=== PATIENT | male | born 1945 | race Caucasian/White ===

== ENCOUNTER 2017-11-11 09:28 | Outpatient (CLI) | payer MEDICARE ==
[~2017-11-11 09:28] MED LIST: AMLO2.5T2 PO; ATI1T PO; FOLI0.4T2 PO; GABA300C PO; GABA400C PO; HYDR-569 PO; LEVO25TA7 PO; LITH300T34 PO; MAGN500C16 PO; NALT50TA10 PO; PRAZ1CAP5 PO; PREG100C PO; PYRI50TA10 PO; THIA100T70 PO; TRAZ-143 PO; VENL-190 PO; VITA100D6 PO
[2017-11-11 09:39] VITALS: BP 113/83
[2017-11-12] MEDS ORDERED: tPA-cathflo 2 MG/2 ml IV flush ONE (18:48)
== END 2017-11-11 10:00 | disposition home or self-care (01) ==
LOC: ORTHO 09:28
PROVIDERS: ATTEND Nurse Practitioner Family
DX: G89.29 Other chronic pain (principal); Z53.21 Procedure and treatment not carried out due to patient leaving prior to being seen by health care provider
CPT/HCPCS: J2997

== ENCOUNTER 2020-08-03 00:56 | Emergency (ER) | payer MEDICARE ==
[~2020-08-03] VITALS: Ht 175.3 cm; Wt 89.5 kg
[~2020-08-03 00:56] MED LIST changes: +HYDR-4383 PO; -HYDR-569 PO; -PYRI50TA10 PO; +PYRI50TA13 PO; -TRAZ-143 PO; +TRAZ-251 PO
[2020-08-03 01:40] LABS: CLARITY,URINE CLEAR (Clear); COLOR,URINE YELLOW (Yellow); GLUCOSE, URINE NEGATIVE (Neg); KETONES,URINE NEGATIVE (Neg); LEUKOCYTE ESTERASE ,URINE NEGATIVE (Neg); NITRITES, URINE NEGATIVE (Neg); OCCULT BLOOD,URINE NEGATIVE (Neg); PROTEIN,URINE NEGATIVE (Neg); UROBILINOGEN,URINE 0.2 E.U/dL (0.2-1.0)
[2020-08-03 01:45] LABS: UA COLLECTION TYPE CLN CATCH MIDSTREAM
[2020-08-03 02:04] LABS: URINE AMPHETAMINE SCREEN NEGATIVE (Neg); URINE BARBITUATE SCREEN NEGATIVE (Neg); URINE BENZODIAZEPINES SCREEN POSITIVE (Neg); URINE CANNABINOID SCREEN NEGATIVE (Neg); URINE COCAINE SCREEN NEGATIVE (Neg); URINE METHADONE SCREEN NEGATIVE (Neg); URINE OPIATE SCREEN NEGATIVE (Neg); URINE PHENCYCLIDINE SCREEN NEGATIVE (Neg)
[2020-08-03 02:09] LABS: ALANINE AMINOTRANSFERASE 29 U/L (12-78); ALBUMIN 3.6 G/DL (3.4-5.0); ALKALINE PHOSPHATASE 78 IU/L (46-116); ANION GAP 6 (8-16); ASPARTATE AMINO TRANSFERASE 12 U/L (10-37); BILIRUBIN,TOTAL 0.2 MG/DL (0.1-1.0); BLOOD UREA NITROGEN 13 MG/DL (7-18); BUN/CREATININE RATIO 10.6 (5.4-32.0); CALCIUM 9.7 MG/DL (8.5-10.1); CHLORIDE 108 MMOL/L (99-107); CREATININE 1.23 MG/DL (0.60-1.10); GLUCOSE 93 MG/DL (70-104); POTASSIUM 3.7 MMOL/L (3.5-5.1); SODIUM 143 MMOL/L (135-145); TOTAL CARBON DIOXIDE 28.8 MMOL/L (24-32); TOTAL PROTEIN 7.2 G/DL (6.4-8.2); eGFR 58 ML/MIN
[2020-08-03 02:18] LABS: ETHANOL 0.138 GM/DL (0.0-0.010)
--- NOTE | 2020-08-03 02:30 | NUR ---
Pt left his room and walked toward admitting and said he wanted to leave. Pt escorted easily back to his room and lay back down on his bed. Pt lying on the bed now with eyes closed.
[2020-08-03 02:40] LABS: BASOPHILS % (AUTO) 0.3 % (0-1); EOSINOPHILS % (AUTO) 0.8 % (0-6); HEMATOCRIT 45.6 % (42.0-52.0); HEMOGLOBIN 15.4 g/dl (14.0-17.9); LYMPHOCYTES # (AUTO) 1.7 X10'3 (1.1-4.8); LYMPHOCYTES % (AUTO) 33.6 % (21-51); MEAN CORPUSCULAR HEMOGLOBIN 32.2 PG (27.0-31.0); MEAN CORPUSCULAR HGB CONC 33.7 g/dL (33.0-36.5); MEAN CORPUSCULAR VOLUME 95.5 FL (78-98); MEAN PLATELET VOLUME 8.3 FL (7.4-10.4); MONOCYTES # (AUTO) 0.3 X10'3 (0-0.9); MONOCYTES % (AUTO) 6.3 % (2-12); NEUTROPHILS # (AUTO) 2.9 X10'3 (1.8-7.7); PLATELET COUNT 175 X10'3 (140-440); RED BLOOD COUNT 4.78 X10'6 (4.70-6.10); RED CELL DISTRIBUTION WIDTH 15.2 % (11.5-14.5); WHITE BLOOD COUNT 4.9 X10'3 (4.5-11.0)
[2020-08-03] MEDS ORDERED: UNABLE TO OBTAIN (02:40)
--- NOTE | 2020-08-03 03:13 | NUR ---
Pt reports [place] and that he does not have his hearing aids. Reports his right ear is better than the left.
--- NOTE | 2020-08-03 04:17 | NUR ---
pt walked out of his room looking for the bathroom. directed to BR. Ambulating with steady gait. returned to his room and lay back onto his bed. Offered a warm blanket, declined. Given pillow.
--- NOTE | 2020-08-03 06:01 | NUR ---
Pt with stable vs. Denies pain.
--- NOTE | 2020-08-03 08:31 | NUR ---
Pt resting in bed. RN did assessment. PT easy to respond. Sleeping. NAD. PT VSS, no tremors noted.
[2020-08-03] MEDS ORDERED: TRAZ-251 PO ×2 (09:41→10:06)
--- NOTE | 2020-08-03 10:30 | NUR ---
RN called pt stated pharmacy [facility] and had them fax a most recent /up to date med list. RN received list and confirmed meds with pt. He states he has no other pharmacy. Pt med rec reviewed and completed per RN and signed per , faxed to pharmacy.
[2020-08-03] MEDS ORDERED: GABA-530 PO (10:34)
[2020-08-03] MEDS ORDERED: VENL25TA48 PO ×3 (10:40→10:45)
[2020-08-03] MEDS ORDERED: ALPR-624 PO (10:47)
[2020-08-03] MEDS ORDERED: HYDR-3686 PO (10:49)
[2020-08-03] MEDS: gabapentin 300mg capsule PO SCH ×2 (11:47→20:49)
[2020-08-03] MEDS: venlafaxine XR 75mg capsule (Q24H) PO SCH (11:48)
[2020-08-03] MEDS: amLODIPine 5mg tablet PO SCH (11:48)
--- NOTE | 2020-08-03 12:02 | NUR ---
Pt given meds. He is alert and responds to questions easily. Still denies any food. Ambulates to bathroom, shuffled gait but steady. No tremors noted
[2020-08-03] MEDS: ALPRAZolam 0.5mg tablet PO SCH ×2 (12:37→20:49)
--- NOTE | 2020-08-03 12:57 | NUR ---
Pt showed RN his med list written on his ipad as he states he takes [place]. However this med was not on the [facility] list. Pt states he has not refilled it from them for a long time because his MD took him off d/t headaches but he "had left over at home and was taking those". Pt med list states [place] 300mg daily.
[2020-08-03] MEDS: hydrOXYzine 25 MG tablet PO SCH ×2 (13:00→20:49)
--- NOTE | 2020-08-03 13:01 | NUR ---
RN gave meds and noticed pt hands with tremor. Pt states this is not new for him, he is "always like this". VS taken per tech with HR 88 BP [id number] and 166/110 taken again. MD Garcia notified. No action at this time. Addendum: 08/03/20 at 1303 by [facility], 165/112 then 166/110
--- NOTE | 2020-08-03 14:38 | NUR ---
Order placed for [place] level per [facility]
--- NOTE | 2020-08-03 14:39 | NUR ---
Lab here to draw lithium level. Pt NAD
--- NOTE | 2020-08-03 16:00 | NUR ---
Pt sleeping. He continues to not want to eat. RN suggested he have some crackers to which he ate a few bites only. He denied breakfast and lunch and sleeps. He is easy to arouse and cooperative.
[2020-08-03] MEDS ORDERED: PARO10TA85 PO (16:07)
[2020-08-03] MEDS ORDERED: ondansetron 4mg rapidly disintigrating tab PO ONE (18:00)
--- NOTE | 2020-08-03 18:01 | NUR ---
Pt given dinner. He states he does not feel like it. He is "nausesous" and has not been able to eat for "weeks". RN received order for Zofran to attempt if pt will try to take. VS remain stable. Pt tremor not increasing from what he states is his baseline
--- NOTE | 2020-08-03 18:17 | NUR ---
RN asked pt about his tremors. He states they have been normal for him with or without drinking. He states he started drinking again about a month ago when his anxiety increased. HE states he was evaluated by a neurologist a couple years ago for tremors and was on "a medication" but stopped because he did not understand what the DR wanted him to do. He states his anxiety makes him nauseous.
[2020-08-03] MEDS ORDERED: PARoxetine 10mg tablet PO SCH (20:00)
[2020-08-03] MEDS: traZODone 50mg tablet PO SCH (20:49)
--- NOTE | 2020-08-04 02:03 | NUR ---
Pt sleeping, lying on his back with blankets covering to his chest. RR 14 and unlabored.
--- NOTE | 2020-08-04 07:00 | NUR ---
PT IS SLEEPING NO CONCERNS
[2020-08-04] MEDS: venlafaxine XR 75mg capsule (Q24H) PO SCH (07:53)
[2020-08-04] MEDS: ALPRAZolam 0.5mg tablet PO SCH ×3 (07:53→21:00)
[2020-08-04] MEDS: gabapentin 300mg capsule PO SCH ×2 (07:53→20:59)
[2020-08-04] MEDS: levoTHYROXINE 25mcg tablet PO SCH (07:54)
[2020-08-04] MEDS: hydrOXYzine 25 MG tablet PO SCH ×3 (07:54→20:59)
[2020-08-04] MEDS: amLODIPine 5mg tablet PO SCH (07:54)
--- NOTE | 2020-08-04 08:00 | NUR ---
PT IS SLEEPING NO CONCERNS
--- NOTE | 2020-08-04 09:00 | NUR ---
PT IS SLEEPING NO CONCERNS
--- NOTE | 2020-08-04 10:00 | NUR ---
PT IS SLEEPING NO CONCERNS
--- NOTE | 2020-08-04 11:00 | NUR ---
PT IS SLEEPING NO CONCERNS
--- NOTE | 2020-08-04 12:00 | NUR ---
PT IS SLEEPING NO CONCERNS
--- NOTE | 2020-08-04 13:00 | NUR ---
PT IS SLEEPING NO CONCERNS
--- NOTE | 2020-08-04 14:00 | NUR ---
PT IS SLEEPING NO CONCERNS
--- NOTE | 2020-08-04 16:00 | NUR ---
PT IS SLEEPING NO CONCERNS
--- NOTE | 2020-08-04 17:00 | NUR ---
PT IS SLEEPING NO CONCERNS
[2020-08-04] MEDS: traZODone 50mg tablet PO SCH (20:59)
--- NOTE | 2020-08-04 21:09 | NUR ---
Pt accepted scheduled medications with no issue. Behavior calm and appropriate. Pt denies further thought of SI an would like to be assessed for discharge before 72 hrs are up.
[2020-08-05 06:27] VITALS: BP_DIAS 73
--- NOTE | 2020-08-05 06:37 | NUR ---
pt is sleeping
[2020-08-05 07:40] VITALS: BP_SYST 134
[2020-08-05] MEDS: venlafaxine XR 75mg capsule (Q24H) PO SCH (07:40)
[2020-08-05] MEDS: hydrOXYzine 25 MG tablet PO SCH (07:40)
[2020-08-05] MEDS: ALPRAZolam 0.5mg tablet PO SCH (07:40)
[2020-08-05] MEDS: levoTHYROXINE 25mcg tablet PO SCH (07:40)
[2020-08-05] MEDS: amLODIPine 5mg tablet PO SCH (07:40)
[2020-08-05] MEDS: gabapentin 300mg capsule PO SCH (07:40)
== END 2020-08-05 12:49 ==
LOC: ER 00:57
DX: R45.851 Suicidal ideations (principal); F10.129 Alcohol abuse with intoxication, unspecified; G62.9 Polyneuropathy, unspecified; F31.9 Bipolar disorder, unspecified; Z98.890 Other specified postprocedural states; Z79.899 Other long term (current) drug therapy; Y90.0 Blood alcohol level of less than 20 mg/100 ml
CPT/HCPCS: 36415; 80053; 80178; 80305; 80320; 81003; 84443; 85025; 99285; Q0177

== ENCOUNTER 2020-08-12 10:17 | Emergency (ER) | payer MEDICARE ==
[~2020-08-12] VITALS: Ht 172.7 cm; Wt 89.5 kg
[~2020-08-12 10:17] MED LIST changes: +ALPR-624 PO; -ATI1T PO; -FOLI0.4T2 PO; +GABA-530 PO; -GABA300C PO; -GABA400C PO; +HYDR-3686 PO; -HYDR-4383 PO; -LITH300T34 PO; -MAGN500C16 PO; -NALT50TA10 PO; +PARO10TA85 PO; -PRAZ1CAP5 PO; -PREG100C PO; -PYRI50TA13 PO; -THIA100T70 PO; -VENL-190 PO; +VENL25TA48 PO; -VITA100D6 PO
[2020-08-12 11:02] LABS: BASOPHILS # (AUTO) 0.1 X10'3 (0-0.2); BASOPHILS % (AUTO) 0.9 % (0-1); EOSINOPHILS % (AUTO) 0.4 % (0-6); HEMATOCRIT 49.6 % (42.0-52.0); HEMOGLOBIN 16.5 g/dl (14.0-17.9); LYMPHOCYTES # (AUTO) 2.3 X10'3 (1.1-4.8); LYMPHOCYTES % (AUTO) 29.3 % (21-51); MEAN CORPUSCULAR HGB CONC 33.2 g/dL (33.0-36.5); MEAN CORPUSCULAR VOLUME 96.5 FL (78-98); MONOCYTES # (AUTO) 0.4 X10'3 (0-0.9); MONOCYTES % (AUTO) 4.5 % (2-12); NEUTROPHILS # (AUTO) 5.2 X10'3 (1.8-7.7); NEUTROPHILS % (AUTO) 64.9 % (42-75); PLATELET COUNT 207 X10'3 (140-440); RED BLOOD COUNT 5.14 X10'6 (4.70-6.10); RED CELL DISTRIBUTION WIDTH 15.8 % (11.5-14.5); WHITE BLOOD COUNT 7.9 X10'3 (4.5-11.0)
[2020-08-12 11:26] LABS: ALANINE AMINOTRANSFERASE 48 U/L (12-78); ALBUMIN 4.1 G/DL (3.4-5.0); ALBUMIN/GLOBULIN RATIO 1.1 (1.1-1.5); ALKALINE PHOSPHATASE 99 IU/L (46-116); ANION GAP 13 (8-16); ASPARTATE AMINO TRANSFERASE 33 U/L (10-37); BILIRUBIN,TOTAL 0.5 MG/DL (0.1-1.0); BLOOD UREA NITROGEN 13 MG/DL (7-18); CALCIUM 9.2 MG/DL (8.5-10.1); CHLORIDE 106 MMOL/L (99-107); CREATININE 1.18 MG/DL (0.60-1.10); ETHANOL 0.147 GM/DL (0.0-0.010); GLUCOSE 81 MG/DL (70-104); LIPASE 102 U/L (73-393); POTASSIUM 3.6 MMOL/L (3.5-5.1); SODIUM 144 MMOL/L (135-145); TOTAL CARBON DIOXIDE 25.2 MMOL/L (24-32); TOTAL PROTEIN 7.9 G/DL (6.4-8.2); eGFR 60 ML/MIN
[2020-08-12 11:38] LABS: CLARITY,URINE CLEAR (Clear); COLOR,URINE YELLOW (Yellow); GLUCOSE, URINE NEGATIVE (Neg); KETONES,URINE NEGATIVE (Neg); LEUKOCYTE ESTERASE ,URINE NEGATIVE (Neg); NITRITES, URINE NEGATIVE (Neg); OCCULT BLOOD,URINE TRACE-INTACT (Neg); PROTEIN,URINE NEGATIVE (Neg)
[2020-08-12 11:39] LABS: UA COLLECTION TYPE STRAIGHT CATH
[2020-08-12 11:47] LABS: MUCUS STRANDS MODERATE /LPF (Neg); SQUAMOUS EPITHELIAL CELL,UR FEW /LPF (FEW)
[2020-08-12 11:48] LABS: BACTERIA,URINE FEW /HPF (Neg); RBC,URINE 0-2 /HPF (0-2); URINE AMPHETAMINE SCREEN NEGATIVE (Neg); URINE BARBITUATE SCREEN NEGATIVE (Neg); URINE BENZODIAZEPINES SCREEN POSITIVE (Neg); URINE CANNABINOID SCREEN NEGATIVE (Neg); URINE COCAINE SCREEN NEGATIVE (Neg); URINE METHADONE SCREEN NEGATIVE (Neg); URINE OPIATE SCREEN NEGATIVE (Neg); URINE PHENCYCLIDINE SCREEN NEGATIVE (Neg); WBC,URINE 0-4 /HPF (0-4)
[2020-08-12 13:09] VITALS: BP 151/112
== END 2020-08-12 13:12 | disposition home or self-care (01) ==
LOC: ER 10:18
DX: F10.129 Alcohol abuse with intoxication, unspecified (principal); G62.9 Polyneuropathy, unspecified; I10 Essential (primary) hypertension; F31.9 Bipolar disorder, unspecified; Z98.890 Other specified postprocedural states; Z79.899 Other long term (current) drug therapy; Y90.0 Blood alcohol level of less than 20 mg/100 ml
CPT/HCPCS: 36415; 80053; 80305; 80320; 81001; 83690; 85025; 99283; 99284

== ENCOUNTER 2020-10-19 00:42 | Emergency (ER) | payer MEDICARE ==
[~2020-10-19] VITALS: Ht 177.8 cm; Wt 86.0 kg
[2020-10-19 03:01] LABS: BASOPHILS % (AUTO) 0.9 % (0-1); EOSINOPHILS # (AUTO) 0.1 X10'3 (0-0.9); EOSINOPHILS % (AUTO) 1.1 % (0-6); HEMATOCRIT 41.9 % (42.0-52.0); HEMOGLOBIN 14.1 g/dl (14.0-17.9); LYMPHOCYTES # (AUTO) 1.8 X10'3 (1.1-4.8); LYMPHOCYTES % (AUTO) 40.3 % (21-51); MEAN CORPUSCULAR HEMOGLOBIN 33.3 PG (27.0-31.0); MEAN CORPUSCULAR HGB CONC 33.7 g/dL (33.0-36.5); MEAN CORPUSCULAR VOLUME 98.8 FL (78-98); MEAN PLATELET VOLUME 9.1 FL (7.4-10.4); MONOCYTES # (AUTO) 0.3 X10'3 (0-0.9); MONOCYTES % (AUTO) 7.3 % (2-12); NEUTROPHILS # (AUTO) 2.2 X10'3 (1.8-7.7); NEUTROPHILS % (AUTO) 50.4 % (42-75); PLATELET COUNT 200 X10'3 (140-440); RED BLOOD COUNT 4.24 X10'6 (4.70-6.10); RED CELL DISTRIBUTION WIDTH 15.4 % (11.5-14.5); WHITE BLOOD COUNT 4.4 X10'3 (4.5-11.0)
[2020-10-19 03:20] LABS: ALANINE AMINOTRANSFERASE 38 U/L (12-78); ALBUMIN 3.6 G/DL (3.4-5.0); ALKALINE PHOSPHATASE 94 IU/L (46-116); ANION GAP 10 (8-16); ASPARTATE AMINO TRANSFERASE 21 U/L (10-37); BILIRUBIN,TOTAL 0.3 MG/DL (0.1-1.0); BLOOD UREA NITROGEN 16 MG/DL (7-18); BUN/CREATININE RATIO 12.9 (5.4-32.0); CALCIUM 9.1 MG/DL (8.5-10.1); CHLORIDE 111 MMOL/L (99-107); CREATININE 1.24 MG/DL (0.60-1.10); GLUCOSE 78 MG/DL (70-104); SODIUM 145 MMOL/L (135-145); TOTAL CARBON DIOXIDE 23.6 MMOL/L (24-32); TOTAL PROTEIN 7.1 G/DL (6.4-8.2); eGFR 57 ML/MIN
[2020-10-19 03:29] LABS: ETHANOL 0.152 GM/DL (0.0-0.010)
[2020-10-19 05:14] LABS: CLARITY,URINE CLEAR (Clear); COLOR,URINE YELLOW (Yellow); GLUCOSE, URINE NEGATIVE (Neg); KETONES,URINE 15 mg/dl (Neg); LEUKOCYTE ESTERASE ,URINE NEGATIVE (Neg); NITRITES, URINE NEGATIVE (Neg); OCCULT BLOOD,URINE NEGATIVE (Neg); PH,URINE 5.5 (4.8-8.0); PROTEIN,URINE NEGATIVE (Neg)
[2020-10-19 05:24] LABS: UA COLLECTION TYPE CLN CATCH MIDSTREAM
[2020-10-19 05:32] LABS: URINE AMPHETAMINE SCREEN NEGATIVE (Neg); URINE BARBITUATE SCREEN NEGATIVE (Neg); URINE BENZODIAZEPINES SCREEN NEGATIVE (Neg); URINE CANNABINOID SCREEN NEGATIVE (Neg); URINE COCAINE SCREEN NEGATIVE (Neg); URINE METHADONE SCREEN NEGATIVE (Neg); URINE OPIATE SCREEN NEGATIVE (Neg); URINE PHENCYCLIDINE SCREEN NEGATIVE (Neg)
--- NOTE | 2020-10-19 09:02 | NUR ---
patient in the room asleep.
[2020-10-19 10:01] VITALS: BP 136/87
--- NOTE | 2020-10-19 11:26 | NUR ---
SPOKE TO [facility] SW,PATIENT NOT SUICIDAL TODAY, TO PICK HIM UP BETWEEN [phone].RN SPOKE TO PATIENT,PATIENT CALM AND COOPERATIVE,AWAITING FOR TRANSPORT.REPORT GIVEN TO CHRISTIAN ALLEN.
== END 2020-10-19 12:12 | disposition home or self-care (01) ==
LOC: ER 00:42
DX: F31.9 Bipolar disorder, unspecified (principal); R45.851 Suicidal ideations; F10.129 Alcohol abuse with intoxication, unspecified; F41.9 Anxiety disorder, unspecified; Z79.899 Other long term (current) drug therapy; Z85.820 Personal history of malignant melanoma of skin; Z72.89 Other problems related to lifestyle; Y90.0 Blood alcohol level of less than 20 mg/100 ml
CPT/HCPCS: 36415; 80053; 80305; 80320; 81003; 84443; 85025; 99285

== ENCOUNTER 2021-08-21 12:51 | Emergency (ER) | payer MEDICARE ==
[~2021-08-21] VITALS: Ht 180.3 cm; Wt 89.5 kg
[~2021-08-21 12:51] MED LIST changes: -CHLO25CA10 PO
[2021-08-21 12:59] VITALS: BP 158/104
[2021-08-22] MEDS ORDERED: CHLO25CA10 PO (21:22)
== END 2021-08-21 15:18 | disposition left against medical advice (07) ==
LOC: ER 12:53
DX: F10.239 Alcohol dependence with withdrawal, unspecified (principal); I10 Essential (primary) hypertension; F31.9 Bipolar disorder, unspecified; Z98.890 Other specified postprocedural states; Z72.89 Other problems related to lifestyle; Z79.899 Other long term (current) drug therapy; Z53.21 Procedure and treatment not carried out due to patient leaving prior to being seen by health care provider; Y90.9 Presence of alcohol in blood, level not specified

== ENCOUNTER → 2021-08-21 | Emergency (ER) | payer MEDICARE ==
[~2021-08-21] VITALS: Ht 154.9 cm; Wt 86.4 kg
[~2021-08-21] MED LIST changes: -ALPR-624 PO; -AMLO2.5T2 PO; +AMLO5TAB16 PO; +CHLO10CA6 PO; +CHLO25CA10 PO; +CLON0.1T2 PO; +DIVA-36 PO; -GABA-530 PO; -HYDR-3686 PO; -LEVO25TA7 PO; +LEVO50TA8 PO; +LITH300C PO; -PARO10TA85 PO; -TRAZ-251 PO; -VENL25TA48 PO; +VENL75CA61 PO
[2021-08-21 16:17] VITALS: BP 151/93
== END | disposition left against medical advice (07) ==
LOC: ER 16:14
DX: F10.20 Alcohol dependence, uncomplicated (principal); Z53.21 Procedure and treatment not carried out due to patient leaving prior to being seen by health care provider; Y90.9 Presence of alcohol in blood, level not specified

== ENCOUNTER 2021-08-22 17:09 | Emergency (ER) | payer MEDICARE ==
[~2021-08-22] VITALS: Ht 177.8 cm; Wt 86.4 kg
[2021-08-22] MEDS ORDERED: ondansetron/PF 4mg/2ml inj IV ONE (17:15)
[2021-08-22] MEDS ORDERED: normal saline 1000ML IV soln IVB ONE ×2 (17:15→19:50)
[2021-08-22 17:39] LABS: HEMOGLOBIN 13.3 g/dl (14.0-17.9); RED BLOOD COUNT 4.05 X10'6 (4.70-6.10); WHITE BLOOD COUNT 5.9 X10'3 (4.5-11.0)
[2021-08-22 17:41] LABS: BASOPHILS % (AUTO) 0.4 % (0-1); EOSINOPHILS % (AUTO) 0.1 % (0-6); HEMATOCRIT 39.4 % (42.0-52.0); LYMPHOCYTES # (AUTO) 1.2 X10'3 (1.1-4.8); LYMPHOCYTES % (AUTO) 20.5 % (21-51); MEAN CORPUSCULAR HEMOGLOBIN 32.8 PG (27.0-31.0); MEAN CORPUSCULAR HGB CONC 33.7 g/dL (33.0-36.5); MEAN CORPUSCULAR VOLUME 97.3 FL (78-98); MEAN PLATELET VOLUME 6.9 FL (7.4-10.4); MONOCYTES # (AUTO) 0.3 X10'3 (0-0.9); MONOCYTES % (AUTO) 4.7 % (2-12); NEUTROPHILS # (AUTO) 4.4 X10'3 (1.8-7.7); NEUTROPHILS % (AUTO) 74.3 % (42-75); PLATELET COUNT 200 X10'3 (140-440); RED CELL DISTRIBUTION WIDTH 15.7 % (11.5-14.5)
[2021-08-22 17:52] LABS: ALANINE AMINOTRANSFERASE 48 U/L (12-78); ALBUMIN 4.1 G/DL (3.4-5.0); ALBUMIN/GLOBULIN RATIO 1.1 (1.1-1.5); ALKALINE PHOSPHATASE 93 IU/L (46-116); ANION GAP 16 (8-16); ASPARTATE AMINO TRANSFERASE 77 U/L (10-37); BILIRUBIN,TOTAL 0.6 MG/DL (0.1-1.0); BLOOD UREA NITROGEN 25 MG/DL (7-18); CALCIUM 8.9 MG/DL (8.5-10.1); CHLORIDE 107 MMOL/L (99-107); CREATININE 1.19 MG/DL (0.60-1.10); GLUCOSE 97 MG/DL (70-104); LIPASE 213 U/L (73-393); POTASSIUM 3.6 MMOL/L (3.5-5.1); SODIUM 148 MMOL/L (135-145); TOTAL CARBON DIOXIDE 25.2 MMOL/L (24-32); TOTAL PROTEIN 7.9 G/DL (6.4-8.2); eGFR 60 ML/MIN
[2021-08-22] MEDS ORDERED: LORazepam 2 mg/ml vial ONE (18:15)
[2021-08-22] MEDS ORDERED: LORazepam 2 mg/ml vial IV ONE ×2 (18:15→19:55)
[2021-08-22] MEDS ORDERED: LORazepam 1 MG tablet PO ONE ×2 (18:15→19:55)
[2021-08-22 18:53] LABS: CLARITY,URINE CLEAR (Clear); COLOR,URINE YELLOW (Yellow); GLUCOSE, URINE NEGATIVE (Neg); KETONES,URINE 40 mg/dl (Neg); NITRITES, URINE NEGATIVE (Neg); OCCULT BLOOD,URINE NEGATIVE (Neg); PROTEIN,URINE NEGATIVE (Neg); UA COLLECTION TYPE STRAIGHT CATH
[2021-08-22 18:54] LABS: LEUKOCYTE ESTERASE ,URINE NEGATIVE (Neg); UROBILINOGEN,URINE 0.2 E.U/dL (0.2-1.0)
--- NOTE | 2021-08-22 19:32 | NUR ---
PO ATIVAN HELD PT IS NOT ALERT ENOUGH AND COMPLAINS OF NAUSEA. PT GIVEN IV ATIVAN INSTEAD PER MD ORDERS. PT RESTING SITTING UPRIGHT. ASPIRATION PRECAUTIONS. OXYGEN SATURATION 94% ON 4L NC
--- NOTE | 2021-08-22 20:16 | NUR ---
PT HAS BEEN TAKEN OFF SOFT RESTRAINTS
[2021-08-22 20:50] LABS: TROPONIN I < 0.04 NG/ML (0.0-0.05)
[2021-08-22] MEDS ORDERED: CHLO25CA10 PO (21:22)
[2021-08-22] MEDS ORDERED: chlordiazePOXIDE 5mg capsule PO ONE (21:40)
[2021-08-22 21:55] VITALS: BP 139/90
== END 2021-08-22 21:57 | disposition home or self-care (01) ==
LOC: ER 17:09
DX: F10.239 Alcohol dependence with withdrawal, unspecified (principal); Z20.822 Contact with and (suspected) exposure to COVID-19; R51.9 Headache, unspecified; I10 Essential (primary) hypertension; F31.9 Bipolar disorder, unspecified; Z98.890 Other specified postprocedural states; Z72.89 Other problems related to lifestyle; Z79.899 Other long term (current) drug therapy; Y90.9 Presence of alcohol in blood, level not specified
CPT/HCPCS: 36415; 70450; 71045; 80053; 81003; 83690; 83880; 84145; 84484; 85025; 87635; 93005; 96361; 96374; 96375; 96376; 99285; C9803; J2060; J2405; J7030

== ENCOUNTER 2021-12-05 14:02 | Emergency (ER) | payer MEDICARE ==
[~2021-12-05] VITALS: Ht 170.2 cm; Wt 63.6 kg
[~2021-12-05 14:02] MED LIST changes: -CHLO10CA6 PO; +HYDR-3927 PO; +OLAN2.5T28 PO; +PANT40TA54 PO; +PARO10TA4 PO
[2021-12-05] MEDS ORDERED: gabapentin 400mg capsule PO STA (14:36)
[2021-12-05 14:57] LABS: BASOPHILS # (AUTO) 0.1 X10'3 (0-0.2); BASOPHILS % (AUTO) 0.8 % (0-1); EOSINOPHILS % (AUTO) 0 % (0-6); HEMATOCRIT 45.5 % (42.0-52.0); HEMOGLOBIN 15.5 g/dl (14.0-17.9); LYMPHOCYTES # (AUTO) 2.1 X10'3 (1.1-4.8); MEAN CORPUSCULAR HEMOGLOBIN 31.6 PG (27.0-31.0); MEAN CORPUSCULAR VOLUME 92.7 FL (78-98); MEAN PLATELET VOLUME 8.3 FL (7.4-10.4); MONOCYTES # (AUTO) 0.2 X10'3 (0-0.9); MONOCYTES % (AUTO) 2.7 % (2-12); NEUTROPHILS # (AUTO) 4.2 X10'3 (1.8-7.7); NEUTROPHILS % (AUTO) 64.5 % (42-75); PLATELET COUNT 282 X10'3 (140-440); WHITE BLOOD COUNT 6.5 X10'3 (4.5-11.0)
[2021-12-05 15:15] LABS: APTT 28 SECONDS (22-32)
[2021-12-05 15:19] LABS: ETHANOL 0.152 GM/DL (0.0-0.010); LIPASE 91 U/L (73-393); MAGNESIUM 2.2 MG/DL (1.5-2.4)
[2021-12-05] MEDS ORDERED: ondansetron/PF 4mg/2ml inj IV ONE (16:05)
[2021-12-05] MEDS ORDERED: thiamine 100mg/ml 2ml inj. IV ONE (16:05)
[2021-12-05] MEDS ORDERED: folic acid 1mg/0.2ml inj IV ONE (16:05)
[2021-12-05] MEDS ORDERED: normal saline 1000ML IV soln IVB ONE (16:05)
[2021-12-05 16:33] LABS: ALANINE AMINOTRANSFERASE 52 U/L (12-78); ALBUMIN/GLOBULIN RATIO 0.9 (1.1-1.5); ALKALINE PHOSPHATASE 102 IU/L (46-116); ANION GAP 12 (8-16); ASPARTATE AMINO TRANSFERASE 33 U/L (10-37); BILIRUBIN,TOTAL 0.5 MG/DL (0.1-1.0); BLOOD UREA NITROGEN 20 MG/DL (7-18); BUN/CREATININE RATIO 17.2 (5.4-32.0); CALCIUM 9.5 MG/DL (8.5-10.1); CHLORIDE 106 MMOL/L (99-107); CREATININE 1.16 MG/DL (0.60-1.10); GLUCOSE 94 MG/DL (70-104); SODIUM 143 MMOL/L (135-145); TOTAL CARBON DIOXIDE 24.9 MMOL/L (24-32); TOTAL PROTEIN 8.3 G/DL (6.4-8.2); eGFR 61 ML/MIN
[2021-12-05] MEDS ORDERED: LIDOcaine Viscous 15ml cup MM ONE (16:35)
[2021-12-05] MEDS ORDERED: mag hydrox/Alum hydrox/simeth 30ml oral suspension PO ONE (16:35)
[2021-12-05 18:39] VITALS: BP 182/84
== END 2021-12-05 18:41 | disposition home or self-care (01) ==
LOC: ER 14:03
DX: R07.89 Other chest pain (principal); R06.02 Shortness of breath; R42 Dizziness and giddiness; F10.139 Alcohol abuse with withdrawal, unspecified; I10 Essential (primary) hypertension; G62.9 Polyneuropathy, unspecified; Z85.820 Personal history of malignant melanoma of skin; Z72.89 Other problems related to lifestyle; Z79.899 Other long term (current) drug therapy; Y90.6 Blood alcohol level of 120-199 mg/100 ml
CPT/HCPCS: 36415; 71045; 80053; 80320; 83690; 83735; 84484; 85025; 85610; 85730; 96361; 96374; 96375; 99284; J2405; J3411; J3490; J7030

== ENCOUNTER 2022-01-07 04:40 | Emergency (ER) | payer MEDICARE ==
[~2022-01-07] VITALS: Ht 180.3 cm; Wt 75.0 kg
[2022-01-07] MEDS ORDERED: thiamine inj. 100 MG in normal saline 100ml IV soln 100 ML IV ONE (05:00)
[2022-01-07] MEDS ORDERED: phenobarbital inj 260 MG in normal saline 100ml IV soln 100 ML IV ONE (05:00)
[2022-01-07] MEDS ORDERED: normal saline 1000ML IV soln IVB ONE (05:00)
[2022-01-07] MEDS ORDERED: magnesium 2GM in 50ml NS 50 ML IV ONE (05:00)
[2022-01-07] MEDS ORDERED: ondansetron/PF 4mg/2ml inj IV ONE (05:00)
[2022-01-07] MEDS ORDERED: phenobarbital inj 260 MG in normal saline 100ml IV soln 98 ML IV ONE (05:00)
[2022-01-07] MEDS ORDERED: thiamine inj. 100 MG in normal saline 100ml IV soln 99 ML IV ONE (05:00)
[2022-01-07 05:18] LABS: BASOPHILS % (AUTO) 0.6 % (0-1); EOSINOPHILS % (AUTO) 0 % (0-6); HEMATOCRIT 45.1 % (42.0-52.0); HEMOGLOBIN 15.2 g/dl (14.0-17.9); LYMPHOCYTES # (AUTO) 1.5 X10'3 (1.1-4.8); LYMPHOCYTES % (AUTO) 28.7 % (21-51); MEAN CORPUSCULAR HEMOGLOBIN 31.3 PG (27.0-31.0); MEAN CORPUSCULAR HGB CONC 33.7 g/dL (33.0-36.5); MEAN CORPUSCULAR VOLUME 92.9 FL (78-98); MEAN PLATELET VOLUME 7.8 FL (7.4-10.4); MONOCYTES # (AUTO) 0.2 X10'3 (0-0.9); MONOCYTES % (AUTO) 4.7 % (2-12); NEUTROPHILS # (AUTO) 3.5 X10'3 (1.8-7.7); PLATELET COUNT 132 X10'3 (140-440); RED BLOOD COUNT 4.85 X10'6 (4.70-6.10); RED CELL DISTRIBUTION WIDTH 17.6 % (11.5-14.5); WHITE BLOOD COUNT 5.3 X10'3 (4.5-11.0)
--- NOTE | 2022-01-07 05:30 | NUR ---
Pt continuously tries to get out of bed after repeated redirection from the nurses. Pt is observed as shaky on his feet and continues to make attempts to take off monitors and get out of bed.
[2022-01-07 06:08] LABS: ALANINE AMINOTRANSFERASE 35 U/L (12-78); ALBUMIN 4.4 G/DL (3.4-5.0); ALBUMIN/GLOBULIN RATIO 1.2 (1.1-1.5); ALKALINE PHOSPHATASE 114 IU/L (46-116); ANION GAP 15 (8-16); ASPARTATE AMINO TRANSFERASE 41 U/L (10-37); BILIRUBIN,TOTAL 1.2 MG/DL (0.1-1.0); BLOOD UREA NITROGEN 25 MG/DL (7-18); BUN/CREATININE RATIO 21.6 (5.4-32.0); CALCIUM 9.5 MG/DL (8.5-10.1); CHLORIDE 101 MMOL/L (99-107); CREATININE 1.16 MG/DL (0.60-1.10); ETHANOL 0.196 GM/DL (0.0-0.010); GLUCOSE 87 MG/DL (70-104); MAGNESIUM 2.1 MG/DL (1.5-2.4); POTASSIUM 3.7 MMOL/L (3.5-5.1); SODIUM 140 MMOL/L (135-145); TOTAL CARBON DIOXIDE 23.9 MMOL/L (24-32); eGFR 61 ML/MIN
[2022-01-07 08:20] VITALS: BP 121/80
== END 2022-01-07 08:23 | disposition home or self-care (01) ==
LOC: ER 04:40
DX: F10.129 Alcohol abuse with intoxication, unspecified (principal); I10 Essential (primary) hypertension; F31.9 Bipolar disorder, unspecified; Z98.890 Other specified postprocedural states; Z72.89 Other problems related to lifestyle; Z79.899 Other long term (current) drug therapy; Y90.0 Blood alcohol level of less than 20 mg/100 ml
CPT/HCPCS: 36415; 80053; 80320; 82948; 83735; 85025; 93005; 96365; 96366; 96367; 96375; 99284; J2405; J2560; J3411; J3475; J3490; J7030

== ENCOUNTER 2022-12-31 13:58 | Emergency (ER) | payer MEDICARE ==
[~2022-12-31] VITALS: Ht 180.3 cm; Wt 185.0 kg
[~2022-12-31 13:58] MED LIST changes: -AMLO5TAB16 PO; -CLON0.1T2 PO; -DIVA-36 PO; +FOLI1TAB27 PO; +GABA300C PO; -HYDR-3927 PO; +LISI5TAB22 PO; +LIT300C PO; -LITH300C PO; +METO-395 PO; +MULT-1085 PO; -OLAN2.5T28 PO; -PARO10TA4 PO; +QUET100T34 PO; +THIA100T70 PO; +VENL150C58 PO; -VENL75CA61 PO
[2022-12-31 14:08] VITALS: BP 134/88
[2022-12-31 14:33] LABS: BASOPHILS % (AUTO) 0.5 % (0-1); EOSINOPHILS % (AUTO) 0.1 % (0-6); HEMATOCRIT 44.5 % (42.0-52.0); HEMOGLOBIN 14.4 g/dl (14.0-17.9); LYMPHOCYTES # (AUTO) 1.9 X10'3 (1.1-4.8); LYMPHOCYTES % (AUTO) 21.7 % (21-51); MEAN CORPUSCULAR HEMOGLOBIN 31.4 PG (27.0-31.0); MEAN CORPUSCULAR HGB CONC 32.4 g/dL (33.0-36.5); MEAN CORPUSCULAR VOLUME 97.1 FL (78-98); MEAN PLATELET VOLUME 6.8 FL (7.4-10.4); MONOCYTES # (AUTO) 0.3 X10'3 (0-0.9); MONOCYTES % (AUTO) 3.9 % (2-12); NEUTROPHILS # (AUTO) 6.3 X10'3 (1.8-7.7); NEUTROPHILS % (AUTO) 73.8 % (42-75); PLATELET COUNT 387 X10'3 (140-440); RED BLOOD COUNT 4.58 X10'6 (4.70-6.10); RED CELL DISTRIBUTION WIDTH 16.5 % (11.5-14.5); WHITE BLOOD COUNT 8.6 X10'3 (4.5-11.0)
[2022-12-31 15:42] LABS: ALANINE AMINOTRANSFERASE 84 U/L (12-78); ALBUMIN 3.9 G/DL (3.4-5.0); ALKALINE PHOSPHATASE 127 IU/L (46-116); ANION GAP 17 (8-16); ASPARTATE AMINO TRANSFERASE 47 U/L (10-37); BILIRUBIN,TOTAL 0.4 MG/DL (0.1-1.0); BLOOD UREA NITROGEN 17 MG/DL (7-18); CALCIUM 9.8 MG/DL (8.5-10.1); CHLORIDE 103 MMOL/L (99-107); CREATININE 1.13 MG/DL (0.60-1.10); GLUCOSE 68 MG/DL (70-104); SODIUM 138 MMOL/L (135-145); TOTAL CARBON DIOXIDE 17.6 MMOL/L (24-32); TOTAL PROTEIN 7.9 G/DL (6.4-8.2); eGFR 63 ML/MIN
== END 2022-12-31 15:56 | disposition left against medical advice (07) ==
LOC: ER 13:59
DX: R06.02 Shortness of breath (principal); Z53.21 Procedure and treatment not carried out due to patient leaving prior to being seen by health care provider
CPT/HCPCS: 36415; 80053; 83880; 84484; 85025; 93005

== ENCOUNTER 2023-01-08 06:20 | Emergency (ER) | payer MEDICARE ==
[~2023-01-08] VITALS: Ht 172.7 cm; Wt 77.3 kg
--- NOTE | 2023-01-08 07:29 | NUR ---
Patient came from triage, [facility] no report was given to applications development consultant.Left a message to spouse [phone]/Keyonna.
[2023-01-08] MEDS ORDERED: haloperidol lactate 5mg/ml inj IM PRN (08:10)
[2023-01-08] MEDS ORDERED: LORazepam 2 mg/ml vial IV PRN (08:10)
--- NOTE | 2023-01-08 08:24 | NUR ---
PT TRYING TO WANDER THE HALLWAYS. PT SAT 86-89%. PT REPORTS AT HOME HE IS ON 2 LITERS OXYGEN. PUTTING HIM ON NOW.
[2023-01-08] MEDS ORDERED: ondansetron/PF 4mg/2ml inj IV ONE ×2 (08:35→12:40)
--- NOTE | 2023-01-08 08:39 | NUR ---
PT MOVED FROM BED 4 TO BED 7. WE HAVE A SITTER OUSMANE IN THE HALLWAY WATCHING ANOTHER PT. PT IN BED ON MONITORS.
[2023-01-08] MEDS ORDERED: normal saline 1000ml 1,000 ML IV ONE (09:45)
[2023-01-08 13:18] LABS: ETHANOL 0.077 GM/DL (0.0-0.010)
[2023-01-08 13:24] LABS: ACETAMINOPHEN < 2.0 UG/ML (10-30)
[2023-01-08 14:02] VITALS: BP 169/106
[2023-01-08] MEDS ORDERED: CHLO25CA10 PO (14:18)
[2023-01-08] MEDS ORDERED: LORA-269 PO (14:24)
== END 2023-01-08 18:29 | disposition home or self-care (01) ==
LOC: ER 06:20
DX: F10.929 Alcohol use, unspecified with intoxication, unspecified (principal); I10 Essential (primary) hypertension; F31.9 Bipolar disorder, unspecified; Z79.899 Other long term (current) drug therapy
CPT/HCPCS: 36415; 80320; 80329; 96361; 96374; 96375; 96376; 99285; J2060; J2405; J7030; A4615